=== PATIENT | female | born 1940 | race Caucasian/White ===

== ENCOUNTER 2022-09-05 17:26 | Inpatient (IN) ==
[2022-09-05 18:03] LABS: Basophils # (auto) 0.08 K/uL (0-0.2); Basophils % (auto) 0.8 %; Eosinophils # (auto) 0.14 K/uL (0-0.50); Eosinophils % (auto) 1.4 %; Hematocrit (blood only) 41.8 % (34.1-44.9); Immature Granulocytes # (auto) 0.02 K/uL (0.00-0.02); Immature Granulocytes % (auto) 0.2 %; Lymphocytes # (auto) 1.94 K/uL (1.2-3.4); Lymphocytes % (auto) 19.2 %; Mean Corpuscular Hgb Conc 33.5 g/dL (32.0-36.0); Mean Corpuscular Volume 92.7 fL (80.0-100.0); Mean Platelet Volume 12.1 fL (9.4-12.3); Monocytes # (auto) 0.66 K/uL (0.24-0.82); Monocytes % (auto) 6.5 %; Neutrophils # (auto) 7.27 K/uL (1.4-6.5); Neutrophils % (auto) 71.9 %; Platelet Count 224 K/uL (130-400); RDW Coefficient of Variation 12.6 % (11.5-14.5); RDW Standard Deviation 42.7 fL (36.4-46.3); Red Blood Count 4.51 M/uL (3.93-5.22); White Blood Count 10.11 K/ul (4.8-10.8)
[2022-09-05] MEDS ORDERED: hydrALAZINE HCL 20 MG/ML VIAL IV ONE (18:09)
[2022-09-05 18:21] LABS: Anion Gap 9 (3-11); BUN Creatinine Ratio 20.9 (10-20); Blood Urea Nitrogen 29 mg/dl (6-23); Calcium 9.8 mg/dl (8.5-10.1); Carbon Dioxide 28 mmol/L (21-32); Chloride 100 mmol/L (98-107); Creatinine Clr Calc Pharmacy 22.3 ml/min; Est GFR (African American) 40.8 ml/min; Est GFR (Non-African American) 35.2 ml/min; Glucose 91 mg/dl (70-99(Fasting)); Potassium 4.5 mmol/L (3.5-5.1); Sodium 137 mmol/L (136-145)
[2022-09-05 18:22] LABS: Alanine Aminotransferase < 3 U/L (7-52); Albumin Globulin Ratio 1.6 (0.9-2); Albumin Level 4.7 gm/dl (3.4-5.0); Alkaline Phosphatase 104 U/L (34-104); Aspartate Aminotransferase 13 U/L (13-39); Bilirubin,Total 0.9 mg/dl (0.2-1.0); Total Protein 7.7 gm/dl (6.0-8.3)
[2022-09-05 18:27] LABS: Troponin I High Sensitivity 17.9 pg/ml (0-14)
--- NOTE | 2022-09-05 18:57 | Emergency Department Note ---
Impression & Plan Severe hypertension, Generalized weakness ED Provider Note INFORMANT: Patient ED PROVIDER(S): Gilles Mills MD CHIEF COMPLAINT: Hypertension and malaise PLAN: Disposition: Admitted Condition: Good Outpatient prescription management: none Referral: None MEDICAL DECISION MAKING: Patient presented because of complaints of high blood pressure and not feeling well. She normally has low normal blood pressure given her orthostatic hypotension. Her blood pressure on presentation was very high. She had a nonfocal neurologic examination. She had noted a fall and therefore underwent CT imaging of the head and lumbar spine. No acute traumatic injuries were noted. Patient had an unremarkable CBC and chemistry panel. His troponin was borderline. A 2-hour troponin was performed and there was no increase. Due to the severe high blood pressure the patient was given a dose of hydralazine. He seemed to improve with this however her blood pressure spiked up again. She was given a second dose of hydralazine. Her blood pressures are running near 100 points higher than usual. Patient and family deny any medication mixups. In light of the issues further management in the hospital is felt to be appropriate. Consultation was made with Dr. Macho Pereira of the [facility] service. Patient was evaluated in the ER for further management. Triage Nursing notes reviewed and agree them. Vital Signs: reviewed and remarkable for severe hypertension Differential diagnosis: Benign hypertension, hypertensive emergency, cardiovascular pathology, toxicologic, pheochromocytoma, electrolyte abnormality, renal disease, endorgan damage, as well as other pathologies. Diagnostics interpreted by me: ECG: Twelve-lead ECG reveals normal sinus rhythm at 76 bpm. LVH present. Patient abnormality present. Septal Q waves present. Cardiac Monitoring: Cardiac monitoring ordered by me: The patient was placed on continuous cardiac monitoring and observed. It revealed a normal sinus rhythm at 74 beats per minute without ectopy or evidence of dysrhythmia. Imaging studies: CT imaging as noted above. I refer you to the EMR for further details. HPI: The patient is a 82year old female who presents to the Emergency Room with complaints of hypertension. This started today and is noted to have blood pressures over 200 systolic. The patient states he was not feeling well yest erday and did not feel well today either. She took her blood pressure and it was very high. She states she normally has a low blood pressure and in fact is prescribed midodrine. She denies take any extra doses. The patient also notes the following associated symptoms, generalized weakness. The patient has taken no medication for relieving factors. Current pain is rated as 0/10. Pt denies LOC, headache, fevers, chills, diaphoresis, visual changes, neck pain, chest pain, breathing difficulties, nausea, vomiting, abdominal pain, back pain, melena, hematochezia, urinary symptoms, numbness, lymphadenopathy, rash, or other complaints. ROS: See above HPI for pertinent positives & negatives. A total of 10 systems reviewed and were otherwise negative. PAST MEDICAL HISTORY:See Below , orthostatic hypotension, Parkinson's PAST SURGICAL HISTORY:See Below, FAMILY HISTORY:See Below SOCIAL HISTORY:See Below, HOME MEDICATIONS:See Below ALLERGIES:See Below VITALS:See Below PHYSICAL EXAMINATION: GENERAL: Awake, alert, [id number], in no distress HENT: Normocephalic, atraumatic. Oropharynx unremarkable. EYES: Normal conjunctiva. Sclera non-icteric. PERRLA. EOMI. NECK: Inspection normal. Non-tender. Supple. No nuchal rigidity. FROM. No masses. RESPIRATORY: Clear to auscultation. No wheezes. No rales. Normal respiratory effort. CARDIAC: Normal rate. Normal rhythm. No murmurs. No rubs. Extremities warm and well perfused. Pulses equal. No JVD. GI: Soft, non-distended. No tenderness to palpation. No rebound or guarding. No masses. RECTAL: Deferred. MUSCULOSKELETAL: Atraumatic. Chest examination reveals no tenderness. The back is symmetrical on inspection without obvious abnormality. There is no CVA tenderness to palpation. No joint edema. LOWER EXTREMITIES: Calves are equal size bilaterally and non-tender. No edema. No discoloration. NEURO: Normal sensorium. No sensory or motor deficits noted. No drift. Cranial nerves intact. SKIN: No rash or jaundice noted. Gilles Mills MD Past Med/Surg History Medical History (Updated 09/05/22 @ 18:57 by Gilles Mills MD) Asthma Dyskinesia, drug-induced Elevated serum creatinine Orthostatic hypotension Osteoporosis Parkinsons disease Venous insufficiency Vitamin B12 deficiency Surgical History H/O: hysterectomy Status post phlebectomy Family History Mother Myocardial infarction Social History Smoking Status: Never smoker Preferred Language: Vietnamese Feels Safe at Home: Yes Allergies Allergies Allergy/AdvReac Type Severity Reaction Status Date / Time Codeine Derivatives Allergy Severe Nausea Uncoded 09/05/22 19:34 Home Meds Home Medications Medication Instructions Recorded Confirmed aspirin 81 mg chewable tablet 81 mg PO DAILY 03/16/22 09/05/22 (Children's Aspirin) cholecalciferol (vitamin D3) 50 2,000 unit PO DAILY 03/16/22 09/05/22 mcg (2,000 unit) capsule (Vitamin D3) midodrine 10 mg tablet 10 mg PO UD 04/30/22 09/05/22 amantadine HCl 100 mg tablet 100 mg PO TID 09/05/22 09/05/22 carbidopa ER 50 mg-levodopa 200 mg 0.5 tab PO QID 09/05/22 09/05/22 tablet,extended release Previous Rx's Medication Instructions Recorded sertraline 25 mg tablet (Zoloft) 25 mg PO DAILY #30 tabs 03/31/22 Results & Data (ED) Vital Signs Vital Signs - 24 hr 09/05/22 17:30 09/05/22 18:02 09/05/22 19:00 Temperature 36.4 C L Temperature Source Oral Pulse Rate 74 79 Pulse Rate [Apical] 71 Pulse Rate from SpO2 Sensor 79 Pulse Rhythm [Apical] Regular Pulse Strength [Apical] Normal Respiratory Rate 16 21 22 Respiratory Effort / Characteristics Non-Labored Respiratory Depth Normal Normal Respiratory Pattern Regular Blood Pressure 220/108 H 176/94 H Blood Pressure [Right Arm] 217/126 H Blood Pressure Mean 145 121 Blood Pressure Mean [Right Arm] 156 Blood Pressure Position Sitting Pulse Oximetry 95 96 96 Oxygen Delivery Method Room Air Room Air Room Air Sepsis Recent Fever Within 48 Hours No Sepsis New/Unexplained Change in Mental Status No Sepsis Action Taken by Nursing No Action Required 09/05/22 19:34 09/05/22 21:00 09/05/22 22:30 Temperature Temperature Source Pulse Rate Pulse Rate [Apical] 73 74 Pulse Rate from SpO2 Sensor 83 Pulse Rhythm [Apical] Pulse Strength [Apical] Respiratory Rate 20 Respiratory Effort / Characteristics Respiratory Depth Respiratory Pattern Blood Pressure 173/87 H Blood Pressure [Right Arm] 157/96 H 210/106 H Blood Pressure Mean 115 Blood Pressure Mean [Right Arm] 116 140 Blood Pressure Position Pulse Oximetry 97 97 Oxygen Delivery Method Room Air Room Air Sepsis Recent Fever Within 48 Hours Sepsis New/Unexplained Change in Mental Status Sepsis Action Taken by Nursing Laboratory Data Result diagrams: 09/05/22 17:45 09/05/22 17:45 Lab Results 09/05/22 09/05/22 09/05/22 Range/Units 17:45 17:45 17:45 WBC 10.11 (4.8-10.8) K/ul RBC 4.51 (3.93-5.22) M/uL Hgb 14.0 (12.0-16.0) g/dl Hct 41.8 (34.1-44.9) % MCV 92.7 (80.0-100.0) fL MCH 31.0 (25.0-34.0) pg MCHC 33.5 (32.0-36.0) g/dL RDW Std Deviation 42.7 (36.4-46.3) fL RDW Coeff of Dong 12.6 (11.5-14.5) % Plt Count 224 (130-400) K/uL MPV 12.1 (9.4-12.3) fL Immature Gran % (Auto) 0.2 % Neut % (Auto) 71.9 % Lymph % (Auto) 19.2 % Trinity % (Auto) 6.5 % Eos % (Auto) 1.4 % Baso % (Auto) 0.8 % Neut # (Auto) 7.27 H (1.4-6.5) K/uL Lymph # (Auto) 1.94 (1.2-3.4) K/uL Trinity # (Auto) 0.66 (0.24-0.82) K/uL Eos # (Auto) 0.14 (0-0.50) K/uL Baso # (Auto) 0.08 (0-0.2) K/uL Immature Gran # (Auto) 0.02 (0.00-0.02) K/uL Sodium 137 (136-145) mmol/L Potassium 4.5 (3.5-5.1) mmol/L Chloride 100 (98-107) mmol/L Carbon Dioxide 28 (21-32) mmol/L Anion Gap 9 (3-11) BUN 29 H (6-23) mg/dl Creatinine 1.39 H (0.6-1.2) mg/dl Est Cr Clr Drug Dosing 22.3 ml/min Est GFR ( Amer) 40.8 ml/min Est GFR (Non-Af Amer) 35.2 ml/min BUN/Creatinine Ratio 20.9 H (10-20) Glucose 91 (70-99(Fasting)) mg/dl Calcium 9.8 (8.5-10.1) mg/dl Total Bilirubin 0.9 (0.2-1.0) mg/dl AST 13 (13-39) U/L ALT < 3 L (7-52) U/L Alkaline Phosphatase 104 (34-104) U/L Troponin I High Sens 17.9 H Cancelled (0-14) pg/ml Total Protein 7.7 (6.0-8.3) gm/dl Albumin 4.7 (3.4-5.0) gm/dl Globulin 3.0 (2.5-4.0) gm/dl Albumin/Globulin Ratio 1.6 (0.9-2) Urine Color Urine Appearance (Clear) Urine pH (4.5-7.5) Ur Specific Sawyer (1.000-1.030) Urine Protein (Negative) Urine Glucose (UA) (Negative) Urine Ketones (Negative) Urine Blood (Negative) Urine Nitrite (Negative) Urine Bilirubin (Negative) Urine Urobilinogen (Negative) Ur Leukocyte Esterase (Negative) Urine WBC (Auto) (0-5) /hpf Urine RBC (Auto) (0-4) /hpf U Hyaline Cast (Auto) (0-5) /lpf U Epithel Cells (Auto) (0-5) /lpf Urine Bacteria (Auto) (Negative) SARS-CoV-2, RNA, NAAT (NEGATIVE) 09/05/22 09/05/22 09/05/22 Range/Units 20:07 20:58 21:10 WBC (4.8-10.8) K/ul RBC (3.93-5.22) M/uL Hgb (12.0-16.0) g/dl Hct (34.1-44.9) % MCV (80.0-100.0) fL MCH (25.0-34.0) pg MCHC (32.0-36.0) g/dL RDW Std Deviation (36.4-46.3) fL RDW Coeff of Dong (11.5-14.5) % Plt Count (130-400) K/uL MPV (9.4-12.3) fL Immature Gran % (Auto) % Neut % (Auto) % Lymph % (Auto) % Trinity % (Auto) % Eos % (Auto) % Baso % (Auto) % Neut # (Auto) (1.4-6.5) K/uL Lymph # (Auto) (1.2-3.4) K/uL Trinity # (Auto) (0.24-0.82) K/uL Eos # (Auto) (0-0.50) K/uL Baso # (Auto) (0-0.2) K/uL Immature Gran # (Auto) (0.00-0.02) K/uL Sodium (136-145) mmol/L Potassium (3.5-5.1) mmol/L Chloride (98-107) mmol/L Carbon Dioxide (21-32) mmol/L Anion Gap (3-11) BUN (6-23) mg/dl Creatinine (0.6-1.2) mg/dl Est Cr Clr Drug Dosing ml/min Est GFR ( Amer) ml/min Est GFR (Non-Af Amer) ml/min BUN/Creatinine Ratio (10-20) Glucose (70-99(Fasting)) mg/dl Calcium (8.5-10.1) mg/dl Total Bilirubin (0.2-1.0) mg/dl AST (13-39) U/L ALT (7-52) U/L Alkaline Phosphatase (34-104) U/L Troponin I High Sens 16.7 H (0-14) pg/ml Total Protein (6.0-8.3) gm/dl Albumin (3.4-5.0) gm/dl Globulin (2.5-4.0) gm/dl Albumin/Globulin Ratio (0.9-2) Urine Color Yellow Urine Appearance Clear (Clear) Urine pH 7.5 (4.5-7.5) Ur Specific Sawyer 1.006 (1.000-1.030) Urine Protein Negative (Negative) Urine Glucose (UA) Negative (Negative) Urine Ketones Negative (Negative) Urine Blood Negative (Negative) Urine Nitrite Negative (Negative) Urine Bilirubin Negative (Negative) Urine Urobilinogen Negative (Negative) Ur Leukocyte Esterase Trace H (Negative) Urine WBC (Auto) 1-5 (0-5) /hpf Urine RBC (Auto) 0-4 (0-4) /hpf U Hyaline Cast (Auto) 0 (0-5) /lpf U Epithel Cells (Auto) 10-20 H (0-5) /lpf Urine Bacteria (Auto) Negative (Negative) SARS-CoV-2, RNA, NAAT NEGATIVE (NEGATIVE) Administered Medications Discontinued Medications Hydralazine HCl (Hydralazine Hcl 20 Mg/Ml Vial) 2.5 mg IV NOW ONE Stop: 09/05/22 18:10 Last Admin: 09/05/22 18:25 Dose: 2.5 mg Documented By: NAVID Hydralazine HCl (Hydralazine Hcl 20 Mg/Ml Vial) 2.5 mg IV NOW STA Stop: 09/05/22 21:03 Last Admin: 09/05/22 21:10 Dose: 2.5 mg Documented By: LUCITA Imaging Data Radiologist's Impression: Head CT 09/05/22 18:57 CT head/brain wo con CLINICAL HISTORY: 82 years-old Female with fall, severe htn. Acute head injury with hypertension TECHNIQUE: Multiple axial CT images of the head were obtained without contrast. A dose lowering technique was utilized adhering to the principles of ALARA. COMPARISON: 06/10/2022 FINDINGS: No acute intracranial hemorrhage, midline shift, intracranial mass, hydrocephalus, territorial ischemia or abnormal extra-axial collection. Involutional changes with chronic microvascular ischemic disease. Cerebral vascular calcifications. The calvarium is intact. Prior bilateral lens repair. The paranasal sinuses, mastoid air cells, and middle ear cavities are clear. IMPRESSION: No acute intracranial abnormality or calvarial fracture. ACT 112: Negative or not required by law. The above report was generated using voice recognition software. It may contain grammatical, syntax or spelling errors. Electronically signed by: Davin Becker M.D. 09/05/2022 7:[address] 09/05/22 18:57 CT lumbar spine wo con HISTORY: 82 years-old Female fall, upper lumbar back pain acute low back pain status post fall COMPARISON: None TECHNIQUE: Multiple axial CT images of the lumbar spine were obtained without the use of IV contrast. A dose lowering technique was used consistent with the principals of ALARA. FINDINGS: No acute fracture or subluxation is identified. The study is mildly motion degraded by respiratory motion artifact. No acute sacral insufficiency fracture. Moderate degeneration of the SI joints. 35 degrees levoscoliosis measured from L1-L5. Mild to moderate asymmetric disc space narrowing is noted on the right throughout the lumbar spine. Chondrocalcinosis. There is mild multilevel spondylitic spurring with moderate facet arthrosis. Limited evaluation of the central canal and neural foramina by CT technique. Right paracentral disc bulge at L2-L3 without high-grade central canal or neural foraminal narrowing. Vacuum disc phenomenon at L5-S1 with small posterior disc osteophyte complex. Subcentimeter bone island of the T12 vertebral body posteriorly. Calcified plaque of the aorta and branch vessels. No prevertebral edema or lymphadenopathy identified. IMPRESSION: 1. No acute fracture or subluxation identified. 2. Moderate levoscoliosis. 3. Demineralized appearance of the bones with degenerative changes as above. ACT 112: Negative or not required by law. The above report was generated using voice recognition software. It may contain grammatical, syntax or spelling errors. Electronically signed by: Davin Becker M.D. 09/05/2022 7:30 PM Discharge Plan Visit Data Chief Complaint: Hypertension Stated Complaint: HIGH BP OF 200 ED Provider: Gilles Mills Discharge Problem: Severe hypertension, Generalized weakness Patient Disposition: Admitted As Inpatient Discharge Instructions Interventions: ED Discharge Assessment Last Done: 09/05/22 23:33
--- NOTE | 2022-09-05 19:26 | CT Scan Report ---
CT head/brain wo con CLINICAL HISTORY: 82 years-old Female with fall, severe htn. Acute head injury with hypertension TECHNIQUE: Multiple axial CT images of the head were obtained without contrast. A dose lowering tech nique was utilized adhering to the principles of ALARA. COMPARISON: 06/10/2022 FINDINGS: No acute intracranial hemorrhage, midline shift, intracranial mass, hydrocephalus, territorial ischem ia or abnormal extra-axial collection. Involutional changes with chronic microvascular ischemic disea se. Cerebral vascular calcifications. The calvarium is intact. Prior bilateral lens repair. The paranasal sinuses, mastoid air cells, and m iddle ear cavities are clear. IMPRESSION: No acute intracranial abnormality or calvarial fracture. ACT 112: Negative or not required by law. The above report was generated using voice recognition software. It may contain grammatical, syntax o r spelling errors. Electronically signed by: Davin Becker M.D. 09/05/2022 7:24 PM
--- NOTE | 2022-09-05 19:32 | CT Scan Report ---
CT lumbar spine wo con HISTORY: 82 years-old Female fall, upper lumbar back pain acute low back pain status post fall COMPARISON: None TECHNIQUE: Multiple axial CT images of the lumbar spine were obtained without the use of IV contrast. A dose lowering technique was used consistent with the principals of ALARA. FINDINGS: No acute fracture or subluxation is identified. The study is mildly motion degraded by respiratory mo tion artifact. No acute sacral insufficiency fracture. Moderate degeneration of the SI joints. 35 deg ceasar levoscoliosis measured from L1-L5. Mild to moderate asymmetric disc space narrowing is noted on the right throughout the lumbar spine. Chondrocalcinosis. There is mild multilevel spondylitic spurri ng with moderate facet arthrosis. Limited evaluation of the central canal and neural foramina by CT t echnique. Right paracentral disc bulge at L2-L3 without high-grade central canal or neural foraminal narrowing. Vacuum disc phenomenon at L5-S1 with small posterior disc osteophyte complex. Subcentimete r bone island of the T12 vertebral body posteriorly. Calcified plaque of the aorta and branch vessels. No prevertebral edema or lymphadenopathy identified . IMPRESSION: 1. No acute fracture or subluxation identified. 2. Moderate levoscoliosis. 3. Demineralized appearance of the bones with degenerative changes as above. ACT 112: Negative or not required by law. The above report was generated using voice recognition software. It may contain grammatical, syntax o r spelling errors. Electronically signed by: Davin Becker M.D. 09/05/2022 7:30 PM
[2022-09-05] MEDS ORDERED: hydrALAZINE HCL 20 MG/ML VIAL IV STA (21:02)
[2022-09-05 21:17] LABS: Appearance Urine Clear (Clear); Bacteria Urine Automated Negative (Negative); Bilirubin Urine Negative (Negative); Blood Urine Negative (Negative); Cast Urine Automated 0 /lpf (0-5); Color Urine Yellow; Glucose Urine UA Negative (Negative); Ketones Urine Negative (Negative); Leukocyte Esterase Urine Trace (Negative); Nitrite Urine Negative (Negative); Protein Urine Negative (Negative); RBC Urine Automated 0-4 /hpf (0-4); Specific Gravity Urine 1.006 (1.000-1.030); Urobilinogen Urine Negative (Negative); pH Urine 7.5 (4.5-7.5)
--- NOTE | 2022-09-05 21:50 | History & Physical Report ---
Date of Service September 05, 2022 Assessment & Plan (1) Severe hypertension: Plan: Juanita Ortega is an 82-year-old female with past medical history of Parkinson's, depression who presented due to high blood pressure readings at home. Hypertensive urgency Unclear timing for her blood pressure elevation, as she had not checked for several weeks Possible her BP elevation may be reactive to ongoing low back pain in the setting of her fall Blood pressure improved to 170s over 80s after hydralazine 2.5 mg IV x2 in ED Continue to monitor for now to avoid decreasing BP too quickly Hold home midodrine Elevated creatinine Creatinine to 1.39 on admission, BUN/Cr ratio 20.9 Likely dehydration in the setting of decreased p.o. intake Encourage p.o. intake, gentle IV fluids Monitor creatinine Elevated troponin Mild troponin elevation on admission Likely demand in the setting of pain/high BP No concerning EKG changes or cardiac symptoms Trend to peak Parkinson's disease Continue home Sinemet and amantadine Depression Continue home sertraline DVT prophylaxis: Heparin SQ Diet: Heart healthy Dispo: Telemetry CODE STATUS: Full (2) Orthostatic hypotension: (3) Elevated serum creatinine: (4) Elevated troponin: (5) Parkinsons disease: (6) Low back pain: History of Present Illness Primary Care Provider: Ray Villa DO Juanita Ortega is an 82-year-old female with past medical history of Parkinson's, depression who presented due to high blood pressure readings at home. She states that as of the past few days to a week she hadn't been feeling like herself. She says it is hard to explain her symptoms, but did admit to some fatigue and lack of appetite. She also reported limited oral hydration. However, she denied fever, chills, nausea, vomiting, chest pain, palpitations, shortness of breath, cough, abdominal pain, diarrhea. She did mention that she had a mechanical fall to a seated position, which has been causing her some low back pain ever since.she states she had not checked her blood pressure in a few weeks since a fall and decided to check her blood pressure earlier today due to her nonspecific malaise. At that point, found her BP to be above 200 systolic so decided to come in to hospital for further evaluation. She did not have headache, dizziness, new neurologic deficits, or any other associated symptoms except as above. Of note, patient is usually relatively hypotensive in the setting of her Parkinson's disease takes midodrine at home. On arrival, BP was found to be elevated to 220/108. She received hydralazine 2.5 mg IV x2. Work-up included CT head, which was negative for any acute abnormalities. She also had CT of the lumbar spine showing chronic changes but no acute fractures. Lab work remarkable for a mildly elevated creatinine to 1.39, BUN/creatinine ratio over 20. Mild high-sensitivity troponin elevation to 16. EKG showing normal sinus rhythm with no changes from previous. Allergies Allergy/AdvReac Type Severity Reaction Status Date / Time codeine AdvReac Severe Nausea Verified 09/06/22 00:04 Home Medications Medication Instructions Recorded Confirmed Type aspirin 81 mg chewable tablet 81 mg PO DAILY 03/16/22 09/05/22 History (Children's Aspirin) cholecalciferol (vitamin D3) 50 2,000 unit PO DAILY 03/16/22 09/05/22 History mcg (2,000 unit) capsule (Vitamin D3) sertraline 25 mg tablet (Zoloft) 25 mg PO DAILY #30 tabs 03/31/22 09/05/22 Rx midodrine 10 mg tablet 10 mg PO UD 04/30/22 09/05/22 History amantadine HCl 100 mg tablet 100 mg PO TID 09/05/22 09/05/22 History carbidopa ER 50 mg-levodopa 200 mg 0.5 tab PO QID 09/05/22 09/05/22 History tablet,extended release Past Med/Surg History Medical History (Updated 09/06/22 @ 02:24 by Robbin Mace MD) Asthma Dyskinesia, drug-induced Elevated serum creatinine Orthostatic hypotension Osteoporosis Parkinsons disease Venous insufficiency Vitamin B12 deficiency Surgical History H/O: hysterectomy Status post phlebectomy Family History Mother Myocardial infarction Social History Smoking Status: Never smoker Hx Alcohol Use: No Hx Substance Use: No Preferred Language: Filipino Filler Operator Required: No Beliefs That Will Affect Care: None Current Living Situation: Spouse Feels Safe at Home: Yes Assistive Devices: None Review of Systems Review of Systems: Per HPI Physical Exam Physical Exam: GENERAL: A&Ox3. NAD. HEENT: PERRL, EOMI. Moist mucous membranes. NECK: No JVD. No lymphadenopathy. CHEST/LUNGS: CTAB A/P. No crackles, wheezes, rales, rhonchi. HEART: RRR. No m/g/r. No carotid bruits. ABDOMEN: NT/ND, soft. BS+ x4 EXTREMITIES: No cyanosis, no clubbing, no edema SKIN: Warm and dry. No rashes or lesions. PSYCHIATRIC: Euthymic affect, no SI, no pressured speech, no hallucinations NEUROLOGIC: No FND. Results & Data Results & Data ([facility]) Vital Signs (Past 12 Hours) Vital Signs Temp Pulse Pulse Resp BP BP Pulse Ox 09/05/22 21:00 74 20 210/106 H 97 09/05/22 19:34 73 157/96 H 09/05/22 19:00 79 22 176/94 H 96 09/05/22 18:02 71 21 217/126 H 96 09/05/22 17:30 36.4 C L 74 16 220/108 H 95 O2 Del Method 09/05/22 21:00 Room Air 09/05/22 19:34 09/05/22 19:00 Room Air 09/05/22 18:02 Room Air 09/05/22 17:30 Room Air Resident Activity Tracking Resident Involvement: Resident Care Provided Care Provided: Adult Hospital Medicine
[2022-09-05] MEDS ORDERED: ACETAMINOPHEN 325 MG TAB PO PRN (23:48)
[2022-09-05] MEDS ORDERED: SODIUM CHLORIDE 0.9% 1000ML 1,000 ML IV SCH (23:48)
[2022-09-06 07:20] LABS: BUN Creatinine Ratio 21.7 (10-20); Calcium 9.6 mg/dl (8.5-10.1); Creatinine Clr Calc Pharmacy 25.7 ml/min; Est GFR (African American) 48.7 ml/min; Est GFR (Non-African American) 42.1 ml/min; Magnesium 1.9 mg/dl (1.7-2.4); Potassium 4.2 mmol/L (3.5-5.1)
[2022-09-06] MEDS: CARBIDOPA/LEVODOPA 50/200MG EXT REL TAB PO SCH ×2 (07:45→12:18)
[2022-09-06] MEDS: SERTRALINE HCL 50 MG TABLET PO SCH ×2 (07:45→07:51)
[2022-09-06] MEDS ORDERED: ASPIRIN 81 MG ECTAB PO SCH (09:00)
[2022-09-06] MEDS ORDERED: CHOLECALCIFEROL 1,000 UNITS 25 MCG TAB PO SCH (09:00)
[2022-09-06] MEDS ORDERED: AMANTADINE HCL 100 MG CAPSULE PO SCH (09:00)
[2022-09-06] MEDS ORDERED: HEPARIN SOD 5,000 UNIT/0.5 ML VIAL SQ SCH (09:00)
--- NOTE | 2022-09-06 09:14 | Electrocardiogram Report ---
Test Reason : Blood Pressure : / mmHG Vent. Rate : 076 BPM Atrial Rate : 076 BPM P-R Int : 160 ms QRS Dur : 074 ms QT Int : 380 ms P-R-T Axes : 041 077 077 degrees QTc Int : 427 ms Poor data quality, interpretation may be adversely affected Normal sinus rhythm Voltage criteria for left ventricular hypertrophy Cannot rule out Septal infarct (cited on or before 10-JUN-2022) Minor ST depression in Anterolateral leads Abnormal ECG When compared with ECG of 10-JUN-2022 01:57, No significant change Confirmed by Venancio Valera ([id number]) on 09/06/2022 9:14:24 AM Referred By: REFERRED SELF Confirmed By:Venancio Valera
--- NOTE | 2022-09-06 13:09 | Discharge Summary ---
Date of Service September 06, 2022 Admission HPI Per Admitting Provider Juanita Ortega is an 82-year-old female with past medical history of Parkinson's, depression who presented due to high blood pressure readings at home. She states that as of the past few days to a week she hadn't been feeling like herself. She says it is hard to explain her symptoms, but did admit to some fatigue and lack of appetite. She also reported limited oral hydration. However, she denied fever, chills, nausea, vomiting, chest pain, palpitations, shortness of breath, cough, abdominal pain, diarrhea. She did mention that she had a mechanical fall to a seated position, which has been causing her some low back pain ever since.she states she had not checked her blood pressure in a few weeks since a fall and decided to check her blood pressure earlier today due to her nonspecific malaise. At that point, found her BP to be above 200 systolic so decided to come in to hospital for further evaluation. She did not have headache, dizziness, new neurologic deficits, or any other associated symptoms except as above. Of note, patient is usually relatively hypotensive in the setting of her Parkinson's disease takes midodrine at home. On arrival, BP was found to be elevated to 220/108. She received hydralazine 2.5 mg IV x2. Work-up included CT head, which was negative for any acute abnormalities. She also had CT of the lumbar spine showing chronic changes but no acute fractures. Lab work remarkable for a mildly elevated creatinine to 1.39, BUN/creatinine ratio over 20. Mild high-sensitivity troponin elevation to 16. EKG showing normal sinus rhythm with no changes from previous. Discharge Data Allergies Allergy/AdvReac Type Severity Reaction Status Date / Time codeine AdvReac Severe Nausea Verified 09/06/22 00:04 Consultations 09/05/22 22:29 ED Decision to Admit Stat Ordered Studies 09/05/22 18:57 CT head/brain wo con Stat CT lumbar spine wo con Stat Discharge Plan Discharge Items Patient Disposition: Home - Self-Care Reason For Visit: HYPERTENSIVE URGENCY Discharge Diagnosis: Hypertensive urgency Activity: Resume your previous activity Non-emergency contact: Primary Care Provider Call non-emergency contact if: you have any medication questions and your symptoms worsen Follow-up/Referrals: Ray Villa DO [Primary Care Provider] - Diet: Regular Addtl Attending Provider Instructions: You were admitted to [facility] from August 06 - 2021 due to elevated blood pressure. This was treated wth stopping your midodrine medications. Blood pressure 175/90 on discharge. Please continue off your midodrine and follow up with your primary care physician in the next week for a blood pressure recheck. Please call your doctor earlier if you are lightheaded or dizzy. Pending Studies at Discharge: No Stand-Alone Forms: My [facility], Smoking Cessation Medications and DC Order Prescriptions: Continued sertraline [Zoloft] 25 mg tablet 25 mg PO DAILY Qty: 30 5RF cholecalciferol (vitamin D3) [Vitamin D3] 50 mcg (2,000 unit) capsule 2,000 unit PO DAILY aspirin [Children's Aspirin] 81 mg tablet,chewable 81 mg PO DAILY amantadine HCl 100 mg tablet 100 mg PO TID carbidopa-levodopa 50-200 mg tablet extended release 0.5 tab PO QID Rx Instructions: 0.5 tab po 4 times daily Discontinued midodrine 10 mg tablet 10 mg PO UD Discharge Orders: Discharge Order (Routine); Ordered 09/06/22 Ordered By: Joey Hillman Admission Data Admit Date/Time: 09/05/22 22:46 Attending Provider: Joey Hillman Admit Provider: Macho Pereira Primary Care Provider: Ray Villa Other Providers: Macho Pereira Coding
== END 2022-09-06 14:17 | disposition home or self-care (01) | DRG 305 ==
LOC: ED 17:26 → 4W 22:46 → SUATTDRO 22:46 → 4W 23:33